=== PATIENT | female | born 1990 | race Caucasian/White ===

== ENCOUNTER 2018-07-18 10:16 | Emergency (ER) | payer BC ==
[~2018-07-18] VITALS: Ht 165.1 cm; Wt 63.5 kg
[~2018-07-18 10:16] MED LIST: CIPRO500 MG PO; LEVOTHYROXINE; NOHOMEMEDICATIONS; NORCO 5-325 TA1 EACH PO; PERCOCET 5-3251 EACH PO; PRENATAL; SYNTHROID100 MCG PO; VALIUM5 MG PO; ZOFRAN4 MG PO
[2018-07-18 10:22] VITALS: BP 115/86
[2018-07-18] MEDS ORDERED: MEDROLDOSEPACK PO (10:43)
== END 2018-07-18 11:13 | disposition home or self-care (01) ==
LOC: M.ERS 10:16
DX: L25.9 Unspecified contact dermatitis, unspecified cause (principal); Z88.1 Allergy status to other antibiotic agents

== ENCOUNTER 2020-11-29 03:45 | Emergency (ER) | payer OTHER ==
[~2020-11-29] VITALS: Ht 165.1 cm; Wt 53.5 kg
[~2020-11-29 03:45] MED LIST changes: +MEDROLDOSEPACK PO
[2020-11-29] MEDS ORDERED: ELIQUIS5 MG PO (03:57)
[2020-11-29] MEDS ORDERED: ZANAFLEX4 MG PO (03:58)
[2020-11-29] MEDS ORDERED: SINGULAIR 10 MG10 M1 PO (03:59)
[2020-11-29] MEDS ORDERED: NEURONTIN600 MG PO (03:59)
[2020-11-29] MEDS ORDERED: FLEXERIL PO (04:00)
[2020-11-29] MEDS ORDERED: ADDERALL 20 MG20 MG PO (04:00)
[2020-11-29 04:29] LABS: HEMATOCRIT 42.4 % (37.0-47.0); HEMOGLOBIN 14.4 gm/dL (12.0-15.0); MCH 31.6 pg (26.0-34.0); MCHC 33.9 g/dL (28.0-37.0); MCV 93.2 fL (80.0-100.0); NUCLEATED RBCS 0 /100WBC; PLATELET COUNT* 362 thou/uL (150-400); RBC 4.55 mil/uL (4.20-5.00); RDW-CV 13.5 % (10.5-14.5); WBC 10.5 thou/uL (4.0-11.0)
[2020-11-29 04:39] LABS: POTASSIUM 4.1 mmol/L (3.5-5.1)
[2020-11-29 05:24] LABS: CALCIUM 8.8 mg/dL (8.5-10.1); CREATININE 1.1 mg/dL (0.6-1.3)
[2020-11-29 05:35] VITALS: BP 123/60
[2020-11-29 05:54] LABS: ABSOLUTE BASOPHILS 0.1 thou/uL (0.0-0.2); ABSOLUTE EOSINOPHILS 0.1 thou/uL (0.0-0.7); ABSOLUTE LYMPHOCYTES 4.6 thou/uL (0.8-5.3); ABSOLUTE MONOCYTES 0.9 thou/uL (0.0-1.2); ABSOLUTE NEUTROPHILS 4.7 thou/uL (1.6-8.1); PLATELET ESTIMATE ADEQUATE
== END 2020-11-29 05:35 | disposition home or self-care (01) ==
LOC: M.ERS 03:45
PROVIDERS: Emergency Medicine
DX: M62.838 Other muscle spasm (principal); Z79.899 Other long term (current) drug therapy

== ENCOUNTER 2021-06-22 23:20 | Emergency (ER) | payer OTHER ==
[~2021-06-22] VITALS: Ht 172.7 cm; Wt 63.5 kg
[~2021-06-22 23:20] MED LIST changes: +ADDERALL 20 MG20 MG PO; +ELIQUIS5 MG PO; +FLEXERIL PO; +NEURONTIN600 MG PO; +SINGULAIR 10 MG10 M1 PO; +ZANAFLEX4 MG PO
[2021-06-22 23:46] LABS: ABSOLUTE BASOPHILS 0.1 thou/uL (0.0-0.2); ABSOLUTE EOSINOPHILS 0.2 thou/uL (0.0-0.7); ABSOLUTE LYMPHOCYTES 2.4 thou/uL (0.8-5.3); ABSOLUTE MONOCYTES 0.9 thou/uL (0.0-1.2); ABSOLUTE NEUTROPHILS 11.6 thou/uL (1.6-8.1); BASOPHILS 0.4 %; EOSINOPHILS 1.3 %; HEMATOCRIT 44.2 % (37.0-47.0); HEMOGLOBIN 14.5 gm/dL (12.0-15.0); LYMPHOCYTES 15.6 %; MCH 29.5 pg (26.0-34.0); MCHC 32.8 g/dL (28.0-37.0); MCV 89.9 fL (80.0-100.0); MONOCYTES 6.1 %; MPV 9.8 fl. (7.2-11.1); NUCLEATED RBCS 0 /100WBC; PLATELET COUNT* 326 thou/uL (150-400); POLYS 76.6 %; RBC 4.91 mil/uL (4.20-5.00); RDW-CV 13.3 % (10.5-14.5); WBC 15.2 thou/uL (4.0-11.0)
[2021-06-22 23:53] LABS: CALCIUM 8.9 mg/dL (8.5-10.1); CREATININE 0.8 mg/dL (0.6-1.3); POTASSIUM 3.6 mmol/L (3.5-5.1)
[2021-06-22 23:57] LABS: ALBUMIN 4.5 g/dL (3.4-5.0); TOTAL BILIRUBIN 0.4 mg/dL (<0.1-1.0); TOTAL PROTEIN 8.1 g/dL (6.4-8.2)
[2021-06-23 00:02] LABS: ACETAMINOPHEN < 2 ug/mL (10-30); ALCOHOL 109 mg/dL (<10); SALICYLATE < 2.8 mg/dL (2.8-20.0)
[2021-06-23 00:37] VITALS: BP 137/86
--- NOTE | 2021-06-23 10:21 | EKG ---
[place] [address] ELECTROCARDIOGRAM REPORT Name: CRISTINA GLEASON Room: [facility]#: [id number] Admission: 06/22/21 Attend Phys: Discharge: 06/23/21 Date of : 86 Date of Service: 06/22/21 2323 Report #: [id number] THIS REPORT FOR: //name// [facility] ED Test Date: 2021-06-22 Test Time: 23:23:51 Pat Name: CRISTINA GLEASON Department: Room: Gender: [place]: [place] : 1990 Requested By: Amy Perez Order Number: [id number] MD: Shawn Rivas Measurements Intervals [place] Rate: 103 P: 84 CO: 126 QRS: 76 QRSD: 86 T: -36 QT: 340 QTc: 445 Interpretive Statements Sinus tachycardia LAE, consider biatrial enlargement Borderline repolarization abnormality Baseline wander in lead(s) V3 No previous ECG available for comparison Electronically Signed On 06-23-2021 10:21:04 CDT by Shawn Rivas [email or web address] <ELECTRONICALLY SIGNED> By: Shawn Rivas MD, [facility] 06/23/21 1021 2323 2323 Shawn Rivas MD, [facility] /EPI
== END 2021-06-23 00:41 | disposition home or self-care (01) ==
LOC: M.ERS 23:20
PROVIDERS: Emergency Medicine
DX: T50.901A Poisoning by unspecified drugs, medicaments and biological substances, accidental (unintentional), initial encounter (principal); Z79.899 Other long term (current) drug therapy; Z98.890 Other specified postprocedural states; Y92.89 Other specified places as the place of occurrence of the external cause

== ENCOUNTER 2021-09-07 19:18 | Emergency (ER) | payer OTHER | END 2021-09-07 19:54 | disposition left against medical advice (07) | LOC: M.ERS 19:18 | DX: F41.9 Anxiety disorder, unspecified (principal); Z53.21 Procedure and treatment not carried out due to patient leaving prior to being seen by health care provider ==